=== PATIENT | female | born 1975 | race American Indian/Alaskan Native ===

== ENCOUNTER 2024-08-03 20:16 | Inpatient (IN) | payer OTHER, BC, SELFPAY ==
[2024-08-03] VITALS (13 sets, daily range): BP systolic 101–173; BP diastolic 60–87; PULSE 91–123; RESP 16–22; TEMP 36.7; O2SAT 96–99; BMI 23.2
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
[2024-08-03 20:49] LABS: Add Manual Diff / Slide Review NO; Basophils Absolute Auto 100 /uL (0-100); Basophils Percent Auto 1.4 % (0-2); Eosinophils Absolute Auto 200 /uL (0-450); Hematocrit 44.9 % (36-46); Hemoglobin 15.5 g/dL (12.0-16.0); Lymphocytes Absolute Auto 2500 /uL (1100-4500); Lymphocytes Percent Auto 45.2 % (25-40); Mean Corpuscular HGB Conc 34.5 % (30-36); Mean Corpuscular Hemoglobin 33.7 PG (26-34); Mean Corpuscular Volume 97.9 fL (80-100); Monocytes Absolute Auto 700 /uL (0-900); Monocytes Percent Auto 12.3 % (3-14); Neutrophils Absolute Auto 2100 /uL (1500-7000); Neutrophils Percent Auto 38.1 % (50-75); Platelet Count 331 X10^3/uL (150-400); Red Blood Cell Count 4.59 X10^6/uL (4.0-5.2); Red Cell Distribution Width 14.1 % (11.6-14.8); White Blood Cell Count 5.5 X10^3/uL (4.5-11.0)
[2024-08-03 21:22] LABS: Alanine Aminotransferase 20 IU/L (<35); Albumin 4.7 g/dL (3.5-5.0); Albumin Globulin Ratio 1.1 (1.0-2.8); Alkaline Phosphatase 73 U/L (38-126); Aspartate Aminotransferase 40 IU/L (14-36); BUN Creatinine Ratio 11.8 (6-22); Bilirubin Total 0.4 mg/dL (0.2-1.3); Blood Urea Nitrogen 6 mg/dL (7-17); Calcium 9.5 mg/dL (8.4-10.2); Carbon Dioxide 22 mmol/L (22-32); Chloride 113 mmol/L (98-107); Estimated Glomerular Filt Rate > 60 mL/min (>60); Globulin 4.3 g/dL (1.7-4.1); Glucose 84 mg/dL (70-100); HEMOLYSIS < 15 (0-50); Potassium 3.5 mmol/L (3.4-5.1); Sodium 151 mmol/L (137-145)
[2024-08-03 21:29] LABS: Ethanol (ETOH) 304 mg/dL
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
--- NOTE | 2024-08-03 22:09 | PC.NURSE ---
Addendum entered by Kellee Crandall R.N. 08/03/24 22:10: Told by provider Teja to give PO water. Pt given cup of water. Original Note: Provider Teja made aware that medication 5% dextrose in water 1000ml bag not available anywhere in hospital, or any bag of it in any amount.
[2024-08-04] VITALS (9 sets, daily range): BP systolic 101–167; BP diastolic 62–102; PULSE 96–107; RESP 16–21; TEMP 36.3–36.6; O2SAT 95–99; BMI 23.2
[2024-08-04] MEDS: DEXTROSE 5%-0.45% NS 1,000 ML 84 ML IV (00:14)
[2024-08-04 00:15] LABS: Pregnancy Test Serum,Qual Negative (Negative)
--- NOTE | 2024-08-04 00:30 | PC.NURSE ---
At bedside with telehealth monitor Dr. Olivas.
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
[2024-08-04] MEDS: ONDANSETRON 4 MG/2 ML INJ IV (05:47)
[2024-08-04] MEDS: OXYCODONE IR 5 MG TABLET PO (05:59)
[2024-08-04] MEDS: OXYCODONE/ACETAMINOPHEN 5/325 TABLET 1 TAB PO ×2 (06:00→12:13)
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
[2024-08-04] MEDS: FOLIC ACID 1 MG TABLET PO (11:01)
[2024-08-04] MEDS: MULTIVITAMIN 1 TABLET 1 TAB PO (11:01)
[2024-08-04] MEDS: THIAMINE 100 MG TABLET PO (11:01)
[2024-08-04 11:42] LABS: Sodium 138 mmol/L (137-145)
[2024-08-04] MEDS: TIZANIDINE 4 MG TABLET PO (13:28)
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
--- NOTE | 2024-08-04 18:38 | PC.NURSE ---
Pt had uneventful day. Med once for discomfort w/good relief. CiWa = 0 Orders for D?C received. SL D/C intact. Home instructions given w/understanding. Pt escorted by staff to waiting vehicle in stable condition.
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
== END 2024-08-04 18:41 | disposition home or self-care (01) | DRG 442 ==
LOC: ED 21:05 → AC 23:31
PROVIDERS: Internal Medicine; Admitting Provider Surgery; Emergency Provider Emergency Medicine; Referring Provider Emergency Medicine; Visit Provider Surgery
DX: S36.115A Moderate laceration of liver, initial encounter (principal); E87.0 Hyperosmolality and hypernatremia; E10.649 Type 1 diabetes mellitus with hypoglycemia without coma; E86.0 Dehydration; F10.129 Alcohol abuse with intoxication, unspecified; F32.A Depression, unspecified; V47.0XXA Car driver injured in collision with fixed or stationary object in nontraffic accident, initial encounter; Y90.8 Blood alcohol level of 240 mg/100 ml or more; Y92.410 Unspecified street and highway as the place of occurrence of the external cause; Z96.41 Presence of insulin pump (external) (internal)
CPT/HCPCS: 36415; 70450; 71046; 71260; 72125; 73502; 74177; 80053; 80320; 82962; 84295; 84703; 85025; 85027; 99284; 99285; J2405; Q9967